=== PATIENT | male | born 1940 | race Caucasian/White ===

== ENCOUNTER → 2017-02-06 | Outpatient (CLI) | payer MEDICARE, OTHER ==
--- NOTE | ~2017-02-06 | CT57 ---
[facility] A Service of [facility] & [facility] RADIOLOGY TEXT RESULTS PATIENT: VIN COONEY JR [facility] 40 UNIT #: [id number] AGE: [address]: Pearl Gastelum SEX: M ORDER DR: [id number] [facility] [address]. [place], [place] [address] [id number] O MR#: [id number] Acc #: [id number] NAME: VIN COONEY : 1940 SEX: M STUDY DATE/TIME: 02/06/2017 14:14 UNIT: [facility] ROOM: STUDY DESCRIPTION: CT Chest Wo Cont Attending Physician: Pearl Gastelum A.P.R.N. Referring Physician: Pearl Gastelum A.P.R.N. Ordering Physician: Pearl Gastelum A.P.R.N. Primary Care Physician: Lorenza Delgado [facility] MEDICAL IMAGING REPORT This report is preliminary unless electronic signature is present EXAM CT chest, 02/06/2017 CLINICAL HISTORY Emphysema. Solitary pulmonary nodule. Cough. TECHNIQUE CTA thorax without contrast. Coronal and sagittal reconstructions were obtained. This CT exam was performed with one or more of the following radiation dose reduction techniques: automatic exposure control, adjustment of mA and/or kV according to patient size, and iterative reconstruction. COMPARISON CT abdomen and pelvis dated 01/23/2017 and 12/08/2015. FINDINGS There is several pulmonary nodules scattered throughout both lungs. Nodules all measure less than 4 mm in size. There is an index 4 mm lesion in the right upper lobe on image 45. There is a peripheral nodule in the right middle lobe measuring 4-5 mm. The nodules in the lower aspect of the lungs are all unchanged from the CT dating back to 05/07/2016. The nodules in the upper lobes have not been previously imaged. There is background emphysema. No focal consolidation. Cardiac size is normal. There is moderate coronary artery calcifications. Thoracic aorta is normal. No pericardial or pleural effusion. Limited images of the upper abdomen were obtained. Hyperdense material in the gallbladder fundus probably represents a gallstone. [facility] A Service of [facility] & [facility] RADIOLOGY TEXT RESULTS PATIENT: VIN COONEY JR LOCATION: [facility] #: [id number] : 40 UNIT #: [id number] AGE: [address]: Pearl Gastelum SEX: M ORDER DR: No acute osseous abnormalities. IMPRESSION 1. Scattered noncalcified pulmonary nodules. The nodules in the lower lungs are unchanged from at least April 2016. The upper lobe nodules have not been previously imaged. These are all likely benign granulomas are all measure less than 5 mm, however, given the background emphysema I would recommend a precautionary 12-month followup CT scan. 2. Emphysema. Dictated by... Narciso Obrien M.D. THIS IS AN ELECTRONICALLY VERIFIED REPORT Narciso Obrien M.D. at 02/07/2017 12:12 PM KATE/steve TD: 02/07/2017 00:49 JOB #: [id number] MEDICAL IMAGING REPORT COPY
== END | disposition home or self-care (01) ==
LOC: CCAT 13:45
DX: J43.9 Emphysema, unspecified (principal); R91.8 Other nonspecific abnormal finding of lung field
CPT/HCPCS: 71250